=== PATIENT | female | born 1955 | race Caucasian/White ===

== ENCOUNTER 2024-05-08 09:23 | Day surgery (SDC) | payer MEDICARE, SELFPAY ==
[2024-05-08] VITALS (9 sets, daily range): BP systolic 123–137; BP diastolic 74–85; PULSE 75–95; RESP 16; TEMP 36.4–36.9; O2SAT 96–99; BMI 25.0
--- NOTE | 2024-05-08 10:09 | PCM.PRE.AN2 ---
ASA Classification* ASA Classification ASA Classification: 2 Assessment & Plan Anesthesia* Anesthesia Assessment Anesthesia Assessment: Discussed sedation and/or anesthesia options, risks, benefits, and alternatives with patient/parents/legal guardian/POA. Questions invited. The patient/parents/legal guardian/POA seems to understand and agrees to proceed with anesthesia plan. Reviewed the physical assessment, medical history, allergy history and patient home medications list prior to surgery/procedure/anesthetic and documented any changes. Performed airway and anesthesia risk assessments. Anesthesia Type Anesthesia Type: MAC History Source History Obtained from:: Patient and Chart Anesthesia Focused Assessment* Temperature: 98.3 F Pulse Rate: 95 Blood Pressure: 123/81 Respiratory Rate: 16 Pulse Ox: 99 Oxygen Delivery Method: Room Air Airway Assessment Mouth opens: >3 cm Mallampati Score: III Teeth Condition: Intact Neck Range of motion (ROM): Full ROM Focused Labs Anesthesia Preop lab: CBC CHEMISTRY COAG Pre-Assessment Diagnosis/Proposed Procedure Planned Operative Procedure(s): CSCOPE Anesthesia History Anesthesia History - finishing supervisor plastic sheets: Anesthesia History - finishing supervisor plastic sheets Hx Hospitalization No 05/06/24 12:03 Any Problems With Anesthesia No 05/06/24 12:03 Cholinesterase deficiency No 05/06/24 12:03 You/Your Family Experience No 05/06/24 12:03 fever (hyperthermia) with Relationship Recent Exposure to Contagious No 05/08/24 09:40 Disease Does patient have nerve No 05/06/24 12:03 stimulator Patient instructed to have device shut off --Does patient have Pacemaker No 05/08/24 09:44 or ICD? When Was Last Pacemaker Check QUESTION #4 FULL TEXT: You/Your Family Experience fever (hyperthermia) with Anesthesia Any additional information?: No Last Oral Intake Last Oral intake: Last Oral Intake NPO since 21:00 05/08/24 09:44 Meds taken in AM with sips of water? Meds patient instructed to take am of surgery Any additional information?: No PONV PONV - finishing supervisor plastic sheets: PONV - finishing supervisor plastic sheets Female Yes 05/06/24 12:03 HX of Motion Sickness No 05/06/24 12:03 HX of N/V After Surgery No 05/06/24 12:03 Non-Smoker Yes 05/06/24 12:03 Duration of Surgery greater No 05/06/24 12:03 than 60 minutes Number of Risk Factors 2 05/06/24 12:03 PONV Score Moderate Risk 05/06/24 12:03 Any additional information?: No Height & Weight Height & Weight: Anesthesia: Height & Weight Height 5 ft 3 in 05/08/24 09:44 Weight: 64 kg 05/08/24 09:44 Body Mass Index (BMI) 25.0 05/08/24 09:44 Respiratory Assessment Respiratory Assessment - finishing supervisor plastic sheets: Respiratory Tract Infection Hx - finishing supervisor plastic sheets Hx Respiratory Tract Infection No 05/06/24 12:03 Any additional information?: No STOP Sleep Apnea STOP Sleep Apnea - finishing supervisor plastic sheets: STOP Sleep Apnea - finishing supervisor plastic sheets Hx Hypertension No 05/06/24 12:03 Hx Sleep Apnea No 05/06/24 12:03 CPAP BIPAP Do you snore loudly (louder No 05/06/24 12:03 than talking or can be heard Do you often feel tired/ No 05/06/24 12:03 fatigued/ sleepy during daytime? Has anyone observed you stop No 05/06/24 12:03 breathing during sleep? STOP Results Negative 05/06/24 12:03 QUESTION #5 FULL TEXT : Do you snore loudly (louder than talking or can be heard through closed doors)? Any additional information?: No Tobacco Use History Tobacco Use History - finishing supervisor plastic sheets: Tobacco Use History - finishing supervisor plastic sheets Tobacco Use Smoking Status Never smoker 05/06/24 12:03 Hx Tobacco Use No 05/06/24 12:03 Years Smoking Packs Smoked per Day Smoking Cessation Date was within the last 15 years Hx Smoking Cessation Date Hx Smoking Cessation Counseling Any additional information?: No Hematologic Medial History Hematologic Hx - finishing supervisor plastic sheets: Hematologic Medical Hx - regulatory coordinator Hx of Blood Transfusion No 05/06/24 12:03 Hx of Transfusion in last 3 No 05/06/24 12:03 Months Date of Last Transfusion (if within last 3 months) Ever experience any problems No 05/06/24 12:03 with transfusion(s)? Specify any problems Hx of Preganancy in last 3 No 05/06/24 12:03 Months Nurse Filling Out Transfusion DSCHRIBER 05/06/24 12:03 & Questions: Date: 05/06/24 05/06/24 12:03 Time: 12:05 05/06/24 12:03 Patient unable to answer at this time (ie. confused, unrespo Any additional information?: No /Reproduction History /Reproductive History - finishing supervisor plastic sheets: /Reproductive Hx- finishing supervisor plastic sheets Hx Now No 05/06/24 12:03 Gestational Age (in weeks): EDC: Hx Hx Para Hx Section SAB No 05/06/24 12:03 Any additional information?: No PFSH Medical History (Updated 05/06/24 @ 12:09 by Noa Otoole) Wears glasses Post-menopausal Arthritis High cholesterol Back pain History of IBS Gastric reflux Non-smoker Acid reflux Positive colorectal cancer screening using Cologuard test Home Medications ?Medication ?Instructions ?Recorded ?Last Taken ?Type estradiol 1 mg tablet 0.5 mg PO QDAY 04/13/24 Unknown History fenofibrate 160 mg tablet 160 mg PO QDAY 04/13/24 Unknown History medroxyprogesterone 2.5 mg tablet 2.5 mg PO QDAY 04/13/24 Unknown History omeprazole 20 mg capsule,delayed 20 mg PO QDAY 04/13/24 05/08/24 06:00 History release Allergy/AdvReac Type Severity Reaction Status Date / Time No Known Allergies Allergy Verified 05/08/24 09:39 Surgical History History of hysteroscopy Social History Smoking Status: Never smoker alcohol intake: never substance use type: does not use Review of Systems (Anesthesia) ROS Narrative System reviewed and no additional complaints, except as documented. Review of Systems ROS Unobtainable: Denies due to encephalopathy, due to endotracheal tube, due to mental condition, due to mental status or other Constitutional Constitutional: Denies change in weight, fever(s), snoring or stops breathing during sleep Eyes Eyes: Denies irritation, itchy eyes or requires corrective lenses ENT HEENT: Denies loss taste/smell, otalgia or sore throat Cardiovascular Cardiovascular: Denies chest pain, dyspnea, hypertension or palpitations Respiratory/Chest Respiratory/Chest: Denies chest congestion, cough or wheezing Gastrointestinal Gastrointestinal: Denies heartburn, nausea or vomiting Musculoskeletal Musculoskeletal: Denies muscle weakness or neck pain Integumentary Integumentary: Denies rash, sores, unusual bruising or wounds Neurologic Neurologic: Denies abnormal movements, abnormal speech, behavior changes, confusion, restless legs or seizures Psychiatric Psychiatric: Denies abnormal sleep pattern, anxiety or confusion Hematologic/Lymphatic Hematologic/Lymphatic: Denies easy bleeding or easy bruising Allergic/Immunologic Allergic/Immunologic: Denies asthma Physical Exam Const alert, oriented x3 and average body habitus HEENT dentition normal Neck full ROM Resp normal respiratory effort, normal air movement and clear to auscultation bilaterally Cardio regular rate, regular rhythm, no murmurs and diaphoretic Back/Spine normal ROM and thoraco-lumbar ROM normal Extremity full ROM Neuro oriented x3 and moves all extremities
--- NOTE | 2024-05-08 10:30 | COLBX_PTH ---
PATIENT: JAGDEEP GONZALEZ [place] [facility] [id number] AGE/SX: 68/F ROOM: RE05/08/[address]: Dr. Herbie Delgado MD : 1955 BED: DIS: 05/08/2024 SPEC #: [id number] RECD: 05/08/24 13:51 STATUS: LASHAE REGuerita #: [id number] MEAGAN: 05/08/24 10:[address]: Herbie Delgado DEPT: SURGICAL PATHOLOGY RECD BY: Cricket Hernandez ENTERED: 05/08/24 13:51 SP TYPE: COLON BX OTHR DR: Dr. Neel Hogan MD Tissues: A - Cecum, NOS Procedures: Surgery Specimen Level IV HEADER OPERATION: Colonoscopy with biopsy, clip and tattoo PRE-OP DIAGNOSIS: Positive colorectal cancer screening using Cologuard test TISSUE SUBMITTED: A- Cecal mass MICROSCOPIC DIAGNOSIS A. Colon, cecum, mass, biopsy: * Fragments of tubulovillous adenoma - see note. Note: If this biopsy represents only a portion of a larger mass lesion, these findings may not be agricultural sales representative. Recommend correlation with endoscopic and imaging findings. MICROSCOPIC DESCRIPTION Slides are reviewed. GROSS DESCRIPTION A. Received in fixative is one container labeled with the patient's name and designated Cecal mass. The specimen consists of multiple irregular fragments of light garcia soft tissue that in aggregate measure 1.6 x 0.2 x 0.2 cm. The specimen is totally submitted in one cassette. 05/08/2024 CPT:44071
--- NOTE | 2024-05-08 10:34 | PCM.HP.BLA ---
History and Physical Date of Admission: 05/08/24 Intake Vital Signs 12/15/2214:34 04/13/2508:12 Height 5 ft 2 in 5 ft 2 in Weight: 146 lb 4 oz BMI 26.7 BP 139/81 H Blood Pressure Location Rt brachial Position Sitting Respiration 18 Pulse 80 Pulse Source Monitor Temp 97.6 F L Temp Source Temporal Pulse Oximetry (%) 99 Oxygen Delivery Method room air Intake Visit Reasons: POSITIVE COLOGUARD Chief Complaint: positive coloagurd Is patient in pain?: No Allergies No Known Allergies Allergy (Unverified 04/13/24 09:13) Medications ?Medication ?Instructions ?Recorded ?Confirmed ?Type estradiol 1 mg tablet 0.5 mg PO QDAY 04/13/24 04/13/24 History fenofibrate 160 mg tablet 160 mg PO QDAY 04/13/24 04/13/24 History medroxyprogesterone 2.5 mg tablet 2.5 mg PO QDAY 04/13/24 04/13/24 History omeprazole 20 mg capsule,delayed 20 mg PO QDAY 04/13/24 04/13/24 History release Have you fallen in the past year?: No PFSH Medical History (Updated 04/13/24 @ 09:12 by Gabriela Singh LPN) Acid reflux Positive colorectal cancer screening using Cologuard test Social History (Updated 04/13/24 @ 09:12 by Gabriela Singh LPN) Smoking Status: Never smoker alcohol intake: never substance use type: does not use HPI HPI HPI: Patient is a 68-year-old female here with positive Cologuard. She denies abdominal pain or blood in the stool. She has never had a colonoscopy. She has no family history of colon cancer. ROS General General: No weight change, appetite, fatigue, colon cancer, breast cancer or weakness HEENT HEENT: No difficulty swallowing, eye injury, eye surgery, swollen glands or hoarseness Endo Endocrine: No thyroid disease, diabetes mellitus, thyroid cancer, Hair loss, heat intolerance or cold intolerance Skin Skin: No rash or changing moles Musc Musculoskeletal: No back problems, arthritis, rheumatoid arthritis, gout or joint pain Cardio Cardiovascular: No murmur, pacemaker, heart disease, atrial fibrillation, high blood pressure, heart attack, heart stent, palpitations, shortness of breat with exertion or chest pain Psych Psychiatric: No depression, anxiety or hearing voices Resp Respiratory: No shortness of breath, No sleep apnea, No cough, No COPD, No asthma, No emphysema and No wheezing Gastro Gastrointestinal: No abdominal pain, No nausea or vomiting, No diarrhea, No constipation, No blood in stool, No acid reflux, No hemorrhoids, No ulcers, No gallbladder problem and No black,tarry stools Charles Hematologic: No blood thinners, No blood disorders, No bleeding, No anemia and No blood clots Neuro Neurologic: No numbness, No tingling and No weakness Exam Const General: cooperative Orientation: alert and oriented x3 HENMT Head: normal to inspection Neck Neck: normal visual inspection and full ROM Chest Chest palpation & inspection: normal inspection of the chest Resp Effort & Inspection: normal respiratory effort Auscultation: clear to auscultation bilaterally Cardio Rate: regular rate Rhythm: regular rhythm GI Inspection: non-distended Palpation: soft and nontender Skin General: no rashes or lesions noted Neuro General: patient alert and patient oriented x3 Extrem General: full ROM Psych Appearance: grossly normal Mental Status: mental status grossly normal Assessment and Plan Assessment and Plan (1) Positive colorectal cancer screening using Cologuard test: Status: Acute Plan: I explained endoscopy in detail to the patient. I explained the risks including but not limited to stroke or heart attack with anesthesia, perforation of the GI tract, bleeding, infection. I explained that any of these could necessitate further emergency surgery. The patient understands and all questions were answered sufficiently. The patient wishes to proceed with procedure. Herbie Delgado MD Pager: [facility] [address] [place] [address], [address] [place] [address] Office: I have examined the patient and the H&P has been reviewed. There are no clinical changes since date of exam.
--- NOTE | 2024-05-08 11:04 | PCM.POST.ANE ---
Anesthesia: Postop Eval I Current Vital Signs Temperature: 97.5 F Pulse Rate: 84 Blood Pressure: 135/82 Respiratory Rate: 16 Pulse Ox: 97 Oxygen Delivery Method: Room Air Assessment Airway patent: Yes Spontaneous unlabored respirations: Yes Mental status: Awake and Calm nausea: No Vomiting: No Anesthesia Complication: No Fluid Hydration Crystalloid volume administer (ml): 20 Total IV fluid infused: 20 Progress Note Anesthesia document: Postop Eval 1 completed: Yes
--- NOTE | 2024-05-08 11:09 | OP.CCLET_ITS ---
05/08/2024 Neel Hogan Re : Colonoscopy procedure for Marya Gallagher Dear [place] This procedure was performed on Wednesday, May 08, 2024. My impressions and recommendations are as follows: Impressions : - Likely malignant tumor in the ascending colon. Biopsied. Tattooed. Clip was placed. - The examination was otherwise normal on direct and retroflexion views. Recommendations : - Discharge patient to home. - Resume previous diet. - Continue present medications. - Await pathology results. - Repeat colonoscopy in 1 year for surveillance based on pathology results. - Return to my office in 1 week. - Perform CT scan (computed tomography) of the abdomen with contrast at appointment to be scheduled. My findings are described in the full procedure note, which is enclosed. If I can be of further assistance, please feel free to contact me at Doctor phone number(s): , Work: . Sincerely, Herbie Delgado MD 05/08/2024 11:09:14 AM This report has been signed electronically.
--- NOTE | 2024-05-08 11:09 | OP.COLON_ITS ---
Patient Name: Marya Gallagher Procedure Date: 05/08/2024 10:39 AM Date of : 1955 Age: 68 Procedure: Colonoscopy Indications: Positive Cologuard test Providers: Herbie Delgado MD Medicines: Propofol per Anesthesia Patient Profile: This is a 68 year old female. Refer to note in patient chart for documentation of history and physical. Last Colonoscopy: none. The patient's first colonoscopy is today. Complications: No immediate complications. Estimated blood loss: Minimal. Procedure: Pre-Anesthesia Assessment: - Prior to the procedure, a History and Physical was performed, and patient medications and allergies were reviewed. The patient's tolerance of previous anesthesia was also reviewed. The risks and benefits of the procedure and the sedation options and risks were discussed with the patient. All questions were answered, and informed consent was obtained. Prior Anticoagulants: The patient has taken no anticoagulant or antiplatelet agents. After reviewing the risks and benefits, the patient was deemed in satisfactory condition to undergo the procedure. After I obtained informed consent, the scope was passed under direct vision. Throughout the procedure, the patient's blood pressure, pulse, and oxygen saturations were monitored continuously. The colonoscope was introduced through the anus and advanced to the cecum, identified by appendiceal orifice and ileocecal valve. The colonoscopy was performed without difficulty. The patient tolerated the procedure well. The quality of the bowel preparation was good. The ileocecal valve, appendiceal orifice, and rectum were photographed. Scope In: 10:47:51 AM Scope Withdrawal Time 0 hours 7 minutes 32 seconds Scope Out: 11:02:03 AM Total Procedure Duration Time 0 hours 14 minutes 12 seconds Findings: A frond-like/villous non-obstructing large mass was found in the ascending colon. The mass was non-circumferential. No bleeding was present. This was biopsied with a cold forceps for histology. Area was tattooed with an injection of 2 mL of Mellissa ink. For location marking, one hemostatic clip was successfully placed. There was no bleeding at the end of the procedure. The exam was otherwise without abnormality on direct and retroflexion views. Impression: - Likely malignant tumor in the ascending colon. Biopsied. Tattooed. Clip was placed. - The examination was otherwise normal on direct and retroflexion views. Recommendation: - Discharge patient to home. - Resume previous diet. - Continue present medications. - Await pathology results. - Repeat colonoscopy in 1 year for surveillance based on pathology results. - Return to my office in 1 week. - Perform CT scan (computed tomography) of the abdomen with contrast at appointment to be scheduled. Procedure Code(s): --- Professional --- 40629, Colonoscopy, flexible; with biopsy, single or multiple 19119, Colonoscopy, flexible; with directed submucosal injection(s), any substance 04883, Unlisted procedure, colon Diagnosis Code(s): --- Professional --- D49.0, Neoplasm of unspecified behavior of digestive system R19.5, Other fecal abnormalities CPT copyright 2021 [employer]. All rights reserved. The codes documented in this report are preliminary and upon computer language coder review may be revised to meet current compliance requirements. Herbie Delgado MD 05/08/2024 11:09:14 AM This report has been signed electronically. Number of Addenda: 0 Note Initiated On: 05/08/2024 10:39 AM
--- NOTE | 2024-05-08 11:44 | POSTOPAN2_ITS ---
Anesthesia Postop Eval I Sum Postop Eval Completion status Anesthesia document: Postop Eval 1 completed: Yes Anesthesia Postop Eval I Summary Anesthesia Postop Eval I Summary: Anesthesia Postop Eval I: Assessment Summary Airway patent Yes 05/08/24 11:05 PRINCIPAL PLANNER.TROBDale Spontaneous unlabored Yes 05/08/24 11:05 PRINCIPAL PLANNER.KULDIP respirations Mental status Awake,Calm 05/08/24 11:05 PRINCIPAL PLANNER.TROBDale nausea No 05/08/24 11:05 PRINCIPAL PLANNER.TROBDale Vomiting No 05/08/24 11:05 PRINCIPAL PLANNER.TROBDale Anesthesia Postop Eval I: Fluid Summary Crystalloid volume administer 20 05/08/24 11:05 PRINCIPAL PLANNER.TROBY (ml) Colloids volume administered ( ml) Blood Product volume administered (ml) Total IV fluid infused 20 05/08/24 11:05 PRINCIPAL PLANNER.KULDIP Anesthesia Postop Eval I: Summary Notes Anesthesia Complication No 05/08/24 11:05 PRINCIPAL PLANNER.KULDIP Anesthesia Complication Comment: Post-operative progress note Anesthesia: Postop Eval II Evaluation Mental status: Awake Pain Level: 0 nausea: No Vomiting: No Complications Anesthesia Complication: No
--- NOTE | 2024-05-08 11:44 | PCM.POSTANE2 ---
Anesthesia Postop Eval I Sum Postop Eval Completion status Anesthesia document: Postop Eval 1 completed: Yes Anesthesia Postop Eval I Summary Anesthesia Postop Eval I Summary: Anesthesia Postop Eval I: Assessment Summary Airway patent Yes 05/08/24 11:05 DIRT BIKE RACER.[email or web address] Spontaneous unlabored Yes 05/08/24 11:05 DIRT BIKE RACER.KULDIP respirations Mental status Awake,Calm 05/08/24 11:05 DIRT BIKE RACER.TROBDale nausea No 05/08/24 11:05 DIRT BIKE RACER.TROBDale Vomiting No 05/08/24 11:05 DIRT BIKE RACER.TROBDale Anesthesia Postop Eval I: Fluid Summary Crystalloid volume administer 20 05/08/24 11:05 DIRT BIKE RACER.TROBY (ml) Colloids volume administered ( ml) Blood Product volume administered (ml) Total IV fluid infused 20 05/08/24 11:05 DIRT BIKE RACER.KULDIP Anesthesia Postop Eval I: Summary Notes Anesthesia Complication No 05/08/24 11:05 DIRT BIKE RACER.KULDIP Anesthesia Complication Comment: Post-operative progress note Anesthesia: Postop Eval II Evaluation Mental status: Awake Pain Level: 0 nausea: No Vomiting: No Complications Anesthesia Complication: No
== END 2024-05-08 12:14 | disposition home or self-care (01) ==
LOC: SDC 09:25 → AC 09:27
PROVIDERS: PCP Family Medicine; Referring Provider Surgery; Visit Provider Surgery
PROC: 0DJD8ZZ Inspection of Lower Intestinal Tract, Via Natural or Artificial Opening Endoscopic (ICD-10-PCS; CPT 45378; principal; 2024-05-08 10:25)
DX: R19.5 Other fecal abnormalities (principal); K21.9 Gastro-esophageal reflux disease without esophagitis; D49.0 Neoplasm of unspecified behavior of digestive system
CPT/HCPCS: 45381; 45380; 88305; A4216; A4648

== ENCOUNTER → 2024-05-12 | Outpatient (CLI) | payer MEDICARE, SELFPAY ==
--- NOTE | 2024-05-12 11:47 | CT_ITS ---
EXAM: CT Chest, Abdomen and Pelvis With Intravenous Contrast CLINICAL INDICATION: COLON CANCER/ PO AND IV CONTRAST TECHNIQUE: Axial computed tomography images of the chest, abdomen and pelvis with intravenous contrast. This CT exam was performed using one or more of the following dose reduction techniques: automated exposure control, adjustment of the mA and/or kV according to patient size, and/or use of iterative reconstruction technique. COMPARISON: No relevant prior studies available. FINDINGS: CHEST: LUNGS AND PLEURAL SPACES: Lung emphysema. No consolidation. No significant effusion. No pneumothorax. No suspicious pulmonary nodules or mediastinal lymphadenopathy. HEART: Unremarkable. No cardiomegaly. No significant pericardial effusion. No significant coronary artery calcifications. MEDIASTINUM: Large esophageal hiatal hernia. ABDOMEN: LIVER: Hepatomegaly with fatty infiltration. GALLBLADDER AND BILE DUCTS: Unremarkable. No calcified stones. No ductal dilation. PANCREAS: Unremarkable. No ductal dilation. No mass. SPLEEN: Unremarkable. No splenomegaly. ADRENALS: Unremarkable. No mass. KIDNEYS AND URETERS: Unremarkable. No hydronephrosis. No solid mass. STOMACH AND BOWEL: Apparent asymmetric wall thickening of the descending colon. Underlying mass can not be excluded. Colonic diverticulosis without acute diverticulitis. No obstruction. PELVIS: APPENDIX: No findings to suggest acute appendicitis. BLADDER: Unremarkable. No mass. REPRODUCTIVE: Unremarkable as visualized. CHEST, ABDOMEN and PELVIS: INTRAPERITONEAL SPACE: Unremarkable. No significant fluid collection. No free air. BONES/JOINTS: Multilevel endplate degenerative changes and disc disease of L4- S1 with grade 1 anterior spondylolisthesis of L4 over L5. No acute fracture. No dislocation. SOFT TISSUES: Unremarkable. VASCULATURE: Scattered calcified atherosclerotic disease of the aorta without dissection or aneurysm. Scattered calcified atherosclerotic disease of aorta. No pulmonary embolism. LYMPH NODES: See above. CT/CT Chest, Abd, Pel w/Contrast IMPRESSION: 1. No pulmonary embolism. 2. No suspicious pulmonary nodules or mediastinal lymphadenopathy. 3. Apparent asymmetric wall thickening of the descending colon. Underlying ma ss can not be excluded. 4. Scattered calcified atherosclerotic disease of the aorta without dissection or aneurysm. 5. Large esophageal hiatal hernia. 6. Hepatomegaly with fatty infiltration. 7. Colonic diverticulosis without acute diverticulitis. Reading Location: [facility]
== END | disposition home or self-care (01) ==
LOC: CT 11:44
PROVIDERS: PCP Family Medicine; Referring Provider Surgery; Visit Provider Surgery
DX: C18.9 Malignant neoplasm of colon, unspecified (principal)
CPT/HCPCS: 71260; 74177; Q9967

== ENCOUNTER 2024-05-28 14:34 | Inpatient (IN) | payer MEDICARE, SELFPAY ==
--- NOTE | 2024-05-19 08:41 | EKG12_ITS ---
Test Reason : PREOP Blood Pressure : */* mmHG Vent. Rate : 69 BPM Atrial Rate : 69 BPM P-R Int : 134 ms QRS Dur : 76 ms QT Int : 360 ms P-R-T Axes : 5 36 46 degrees QTcB Int : 385 ms Normal sinus rhythm Normal ECG Confirmed by RUTH HUBER, COREY ([id number]), editor publications LORENA RODGERS ([id number]) on 05/20/2024 6:36:35 AM Referred By: Herbie Delgado Confirmed By: COREY MIRANDA MD
[2024-05-19 10:14] LABS: Magnesium 2.2 mg/dL (1.5-2.2)
[2024-05-28] VITALS (14 sets, daily range): BP systolic 106–132; BP diastolic 57–77; PULSE 60–79; RESP 14–18; TEMP 36.1–37; O2SAT 95–100; BMI 25.9; BMI 25.6
[2024-05-28] MEDS: Gabapentin 600 MG Tablet PO (11:27)
[2024-05-28] MEDS: Magnesium 1 GM over 15 mins IV (11:27)
[2024-05-28] MEDS: Acetaminophen 500 MG Tablet 1000 MG PO ×2 (11:27→18:26)
[2024-05-28] MEDS: Lactated Ringers 1,000 ML 40 ML IV ×3 (11:27→17:00)
[2024-05-28 11:43] LABS: Bedside Glucose 88 mg/dL (74-106)
--- NOTE | 2024-05-28 12:17 | PRE.ANES_ITS ---
ASA Classification* ASA Classification ASA Classification: 2 Assessment & Plan Anesthesia* Anesthesia Assessment Anesthesia Assessment: Discussed sedation and/or anesthesia options, risks, benefits, and alternatives with patient/parents/legal guardian/POA. Questions invited. The patient/parents/legal guardian/POA seems to understand and agrees to proceed with anesthesia plan. Reviewed the physical assessment, medical history, allergy history and patient home medications list prior to surgery/procedure/anesthetic and documented any changes. Performed airway and anesthesia risk assessments. Anesthesia Type Anesthesia Type: General History Source History Obtained from:: Patient and Chart Anesthesia Focused Assessment* Temperature: 98.6 F Pulse Rate: 72 Blood Pressure: 111/74 Respiratory Rate: 16 Pulse Ox: 98 Oxygen Delivery Method: Room Air Airway Assessment Mouth opens: >3 cm Mallampati Score: IV Teeth Condition: Caps/Crowns (Patient has couple crowns. 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 When Was Last Pacemaker Check QUESTION #4 FULL TEXT: You/Your Family Experience fever (hyperthermia) with Anesthesia Last Oral Intake Last Oral intake: Last Oral Intake NPO since 07:00 05/28/24 11:21 Meds taken in AM with sips of Yes 05/28/24 11:21 water? Meds patient instructed to take am of surgery Any additional information?: Yes NPO since: 07:00 (Patient had preop Ensure at 7 AM.) Meds taken in AM with sips of water?: Yes PONV PONV - tensioning machine operator: PONV - tensioning machine operator Female Yes 05/18/24 10:16 HX of Motion Sickness No 05/18/24 10:16 HX of N/V After Surgery No 05/18/24 10:16 Non-Smoker Yes 05/18/24 10:16 Duration of Surgery greater Yes 05/18/24 10:16 than 60 minutes Number of Risk Factors 3 05/18/24 10:16 PONV Score Moderate Risk 05/18/24 10:16 Height & Weight Height & Weight: Anesthesia: Height & Weight Height 5 ft 2 in 05/28/24 11:21 Weight: 64.3 kg 05/28/24 11:21 Body Mass Index (BMI) 25.9 05/28/24 11:21 Respiratory Assessment Respiratory Assessment - tensioning machine operator: Respiratory Tract Infection Hx - tensioning machine operator Hx Respiratory Tract Infection No 05/18/24 10:16 STOP Sleep Apnea STOP Sleep Apnea - tensioning machine operator: STOP Sleep Apnea - tensioning machine operator Hx Hypertension No 05/18/24 10:16 Hx Sleep Apnea No 05/18/24 10:16 CPAP BIPAP Do you snore loudly (louder No 05/18/24 10:16 than talking or can be heard Do you often feel tired/ No 05/18/24 10:16 fatigued/ sleepy during daytime? Has anyone observed you stop No 05/18/24 10:16 breathing during sleep? STOP Results Negative 05/18/24 10:16 QUESTION #5 FULL TEXT : Do you snore loudly (louder than talking or can be heard through closed doors)? 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 Specify any problems Hx of Preganancy in last 3 No 05/18/24 10:16 Months Nurse Filling Out Transfusion MGRIFFITH 05/18/24 10:16 & Questions: Date: 05/18/24 05/18/24 10:16 Time: 10:18 05/18/24 10:16 Patient unable to answer at this time (ie. confused, unrespo /Reproduction History /Reproductive History - tensioning machine operator: /Reproductive Hx- tensioning machine operator Hx Now No 05/18/24 10:16 Gestational Age (in weeks): EDC: Hx Hx Para Hx Section SAB No 05/18/24 10:16 Active Medications Active Medications: Current Medications Generic Name Dose Route Start Last Admin Trade Name Freq PRN Reason Stop Dose Admin Acetaminophen 1,000 mg 05/28/24 12:30 05/28/24 11:27 Acetaminophen 500 Mg Tablet PO 05/28/24 12:31 1,000 mg PREOP ONE Administration Gabapentin 600 mg 05/28/24 12:30 05/28/24 11:27 Gabapentin 600 Mg Tablet PO 05/28/24 12:31 600 mg PREOP ONE Administration Cefotetan Disodium 2 gm/ 100 mls @ 200 mls/hr 05/28/24 12:30 Sodium Chloride IV 05/28/24 12:59 PREOP ONE Lactated Ringer's 1,000 mls @ 40 mls/hr 05/28/24 12:30 05/28/24 11:27 IV 40 mls/hr .Q25H RANDOLPH Administration Magnesium Sulfate 1 gm/ 102 mls @ 408 mls/hr 05/28/24 12:30 05/28/24 11:27 Dextrose IV 05/28/24 12:44 408 mls/hr X1 ONE Administration Insulin Human Lispro 0 unit 05/28/24 12:30 Insulin Lispro 100 Unit/Ml Insuln.Pen SC 05/28/24 18:30 Q4H PRN PRN BG >/= 180, SEE PROTOCOL Protocol PFSH Medical History Former smoker Wears glasses Post-menopausal Arthritis High cholesterol Back pain History of IBS Gastric reflux Acid reflux Positive colorectal cancer screening using Cologuard test Home Medications ?Medication ?Instructions ?Recorded ?Last Taken ?Type estradiol 1 mg tablet 0.5 mg PO QDAY SUPPLEMENT Unknown History fenofibrate 160 mg tablet 160 mg PO QDAY HLD 04/13/24 Unknown History medroxyprogesterone 2.5 mg tablet 2.5 mg PO QDAY UTERU S HEALTH 04/13/24 Unknown History omeprazole 20 mg capsule,delayed 20 mg PO QDAY GERD 05/28/24 08:00 History release metronidazole 500 mg tablet 500 mg PO TID PREOP ANTIBI OTIC #6 05/15/24 05/27/24 Rx tabs neomycin 500 mg tablet 500 mg PO TID PREOP ANTIBIOT IC #6 05/15/24 Unknown Rx tabs sodium sul 1.479 gram-potas ch See Rx Instructions PO PER PKG DIR 05/18/24 05/27/24 History 0.188 gram-magnes sul 0.225 gram COLON PREOP PREP tablet (Sutab) Allergy/AdvReac Type Severity Reaction Status Date / Time No Known Allergies Allergy Verified 05/28/24 11:13 Surgical History History of wisdom tooth extraction History of colonoscopy History of hysteroscopy Social History Smoking Status: Former smoker alcohol intake: never substance use type: does not use Review of Systems (Anesthesia) ROS Narrative System reviewed and no additional complaints, except as documented.
--- NOTE | 2024-05-28 12:17 | PCM.HP.BLA ---
History and Physical Date of Admission: 05/28/24 Intake Vital Signs 05/08/2508:44 05/15/2512:20 Height 5 ft 3 in 5 ft 3 in Weight: 142 lb BMI 25.1 BP 123/76 H Blood Pressure Location Rt brachial Position Sitting Respiration 17 Pulse 86 Pulse Source Monitor Pulse Oximetry (%) 96 Oxygen Delivery Method room air Intake Visit Reasons: REVIEW CT SCAN RESULTS Chief Complaint: review ct scan results Is patient in pain?: No Allergies No Known Allergies Allergy (Verified 05/15/24 13:15) Medications ?Medication ?Instructions ?Recorded ?Confirmed ?Type estradiol 1 mg tablet 0.5 mg PO QDAY 04/13/24 05/15/24 History fenofibrate 160 mg tablet 160 mg PO QDAY 04/13/24 05/15/24 History medroxyprogesterone 2.5 mg tablet 2.5 mg PO QDAY 04/13/24 05/15/24 History omeprazole 20 mg capsule,delayed 20 mg PO QDAY 04/13/24 05/15/24 History release metronidazole 500 mg tablet 500 mg PO TID #6 tabs 05/15/24 05/15/24 Rx neomycin 500 mg tablet 500 mg PO TID #6 tabs 05/15/24 05/15/24 Rx sodium sul 1.479 gram-potas ch See Rx Instructions PO PER PKG DIR 05/15/24 05/15/24 Rx 0.188 gram-magnes sul 0.225 gram #30 tabs tablet (Sutab) Have you fallen in the past year?: No PFSH Medical History (Updated 05/15/24 @ 13:14 by Sara Torres) Wears glasses Post-menopausal Arthritis High cholesterol Back pain History of IBS Gastric reflux Non-smoker Acid reflux Positive colorectal cancer screening using Cologuard test Surgical History History of hysteroscopy Social History Smoking Status: Never smoker alcohol intake: never substance use type: does not use HPI HPI HPI: Patient is a 68-year-old female here for follow-up of her CT scan and colonoscopy. She was found to have a mass in the ascending colon. She had a CT scan that did not show any signs of metastasis. ROS General General: No weight change, appetite, fatigue, colon cancer, breast cancer or weakness HEENT HEENT: No difficulty swallowing, eye injury, eye surgery, swollen glands or hoarseness Endo Endocrine: No thyroid disease, diabetes mellitus, thyroid cancer, Hair loss, heat intolerance or cold intolerance Skin Skin: No rash or changing moles Musc Musculoskeletal: No back problems, arthritis, rheumatoid arthritis, gout or joint pain Cardio Cardiovascular: No murmur, pacemaker, heart disease, atrial fibrillation, high blood pressure, heart attack, heart stent, palpitations, shortness of breath with exertion or chest pain Psych Psychiatric: No depression, anxiety or hearing voices Resp Respiratory: No shortness of breath, No sleep apnea, No cough, No COPD, No asthma, No emphysema and No wheezing Gastro Gastrointestinal: No abdominal pain, No nausea or vomiting, No diarrhea, No constipation, No blood in stool, No acid reflux, No hemorrhoids, No ulcers, No gallbladder problem and No black,tarry stools Charles Hematologic: No blood thinners, No blood disorders, No bleeding, No anemia and No blood clots Neuro Neurologic: No numbness, No tingling and No weakness Exam Const General: cooperative Orientation: alert and oriented x3 HENMT Head: normal to inspection Neck Neck: normal visual inspection and full ROM Chest Chest palpation & inspection: normal inspection of the chest Resp Effort & Inspection: normal respiratory effort Auscultation: clear to auscultation bilaterally Cardio Rate: regular rate Rhythm: regular rhythm GI Inspection: non-distended Palpation: soft and nontender Skin General: no rashes or lesions noted Neuro General: patient alert and patient oriented x3 Extrem General: full ROM Psych Appearance: grossly normal Mental Status: mental status grossly normal Assessment and Plan Assessment and Plan (1) Colonic mass: Status: Acute Plan: Patient had a positive Cologuard and then underwent colonoscopy and was found to have a mass in the ascending colon near the hepatic flexure. It was tattooed and a clip was placed. 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 I recommend right hemicolectomy to resect it. I discussed right hemicolectomy with the patient in detail. I discussed the risks and including but not limited to; bleeding, infection, injury to other organs such as the bowel, bladder, ureter. Patient understands the risks and is willing to proceed. CT scan was performed that did not show any signs of metastasis. Herbie Delgado MD Pager: [facility] [address] [place] [address], [address] [place] [address] Office: I have examined the patient and the H&P has been reviewed. There are no clinical changes since date of exam.
--- NOTE | 2024-05-28 12:30 | COL._PTH ---
PATIENT: JAGDEEP GONZALEZ LOC: MS3 U#:[id number] AGE/SX: 68/F ROOM: MA322 RE05/28/[address]: Dr. Herbie Delgado MD : 1955 BED: 1 DIS: 05/30/2024 SPEC #: [id number] RECD: 05/28/24 15:09 STATUS: LASHAE PARKINSON #: [id number] MEAGAN: 05/28/24 12:[address]: Herbie Delgado DEPT: SURGICAL PATHOLOGY RECD BY: Cricket Hernandez ENTERED: 05/28/24 15:09 SP TYPE: COLON OTHR DR: Dr. Neel Hogan MD Tissues: A - Colon, NOS Procedures: Surgery Specimen Level HEADER OPERATION: ERAS, laparoscopic, right nash colectomy PRE-OP DIAGNOSIS: Colonic mass TISSUE SUBMITTED: A- Ileocolic segment MICROSCOPIC DIAGNOSIS A. Terminal ileum, right colon and appendix, mass, right hemicolectomy: * Tubulovillous adenoma (3.1 cm) margins free. * Negative for high grade dysplasia. * Negative for invasion. * Resection end margins viable and negative for neoplasia. * Appendix with fibrous obliteration of the distal lumen. * Sixteen lymph nodes negative for metastatic tumor (0/16). MICROSCOPIC DESCRIPTION Slides are reviewed. GROSS DESCRIPTION A. Received in formalin in a container labeled with the patient's name, date of , and ileocolic segment is an ileocecectomy specimen received with 2 stapled margins. The specimen consists of terminal ileum (15 cm in length by 2 cm in diameter), large colon (17 cm in length by 4 cm in diameter), attached appendix (7.5 cm in length by 0.7 cm in diameter), and attached pericolonic fat (up to 9 cm in greatest thickness). The serosa of the ileum exhibits dense adhesions. The serosa of the large bowel is garcia-pink and smooth with creeping fat. There is a 5.5 x 3.0 cm area of black tattoo ink situated 5 cm from the distal margin and greater than 10 cm from the proximal margin. The specimen is opened to reveal a garcia-pink, friable, and lobulated mass at the area of tattoo ink with an embedded metal clip. Mass measurement: 3.1 x 1.9 x 1.2 cm. It is situated to the margins as follows:Proximal margin: 18 cmDistal margin: 6.5 submitted asPericolonic fat margin: 9.5 cm Serial sections of the mass reveal friable garcia-pink surfaces that grossly appear confined to the mucosa, though is ill-defined at the center. No other mass lesions are grossly recognized. There is submucosal garcia-yellow adipose tissue within the large bowel and ileocecal valve. The remaining mucosa is garcia-pink with few haustral folds, and an average wall thickness of 0.3 cm. The attached appendix is sectioned to reveal a pinpoint lumen with 0.2 cm crane. The pericolonic fat is searched for lymph node candidate; 14 garcia-pink possible nodes are identified ranging from 0.2 to 0.7 cm in greatest dimension. Acrobatic Dancer sections:A1. Proximal margin, en faceA2. Distal margin, en faceA3. Pericolonic fat margin, en faceA4-9. Mass, entirely submitted (A9 includes uninvolved, adjacent nuchal so with submucosal fat)A10. Ileocecal valve11. Adhesions of [id number]. AppendixA 13. 6 lymph node candidates, wholeA 14. 6 lymph node candidates, wholeA 15. 2 lymph node candidates, each bisected and 1 inked black B 06/08/2024 CPT:76029
--- NOTE | 2024-05-28 12:30 | COL._PTH ---
PATIENT: JAGDEEP GONZALEZ LOC: MS3 U#:[id number] AGE/SX: 68/F ROOM: OR322 RE05/28/[address]: Dr. Herbie Delgado MD : 1955 BED: 1 DIS: 05/30/2024 SPEC #: [id number] RECD: 05/28/24 15:09 STATUS: LASHAE PARKINSON #: [id number] MEAGAN: 05/28/24 12:[address]: Herbie Delgado DEPT: SURGICAL PATHOLOGY RECD BY: Cricket Hernandez ENTERED: 05/28/24 15:09 SP TYPE: COLON OTHR DR: Dr. Neel Hogan MD Tissues: A - Colon, NOS Procedures: Surgery Specimen Level HEADER OPERATION: ERAS, laparoscopic, right nash colectomy PRE-OP DIAGNOSIS: Colonic mass TISSUE SUBMITTED: A- Ileocolic segment MICROSCOPIC DIAGNOSIS A. Ileocecectomy, mass, right hemicolectomy: MICROSCOPIC DESCRIPTION Slides are reviewed. GROSS DESCRIPTION A. Received in formalin in a container labeled with the patient's name, date of , and ileocolic segment is an ileocecectomy specimen received with 2 stapled margins. The specimen consists of terminal ileum (15 cm in length by 2 cm in diameter), large colon (17 cm in length by 4 cm in diameter), attached appendix (7.5 cm in length by 0.7 cm in diameter), and attached pericolonic fat (up to 9 cm in greatest thickness). The serosa of the ileum exhibits dense adhesions. The serosa of the large bowel is garcia-pink and smooth with creeping fat. There is a 5.5 x 3.0 cm area of black tattoo ink situated 5 cm from the distal margin and greater than 10 cm from the proximal margin. The specimen is opened to reveal a garcia-pink, friable, and lobulated mass at the area of tattoo ink with an embedded metal clip. Mass measurement: 3.1 x 1.9 x 1.2 cm. It is situated to the margins as follows:Proximal margin: 18 cmDistal margin: 6.5 submitted asPericolonic fat margin: 9.5 cm Serial sections of the mass reveal friable garcia-pink surfaces that grossly appear confined to the mucosa, though is ill-defined at the center. No other mass lesions are grossly recognized. There is submucosal garcia-yellow adipose tissue within the large bowel and ileocecal valve. The remaining mucosa is garcia-pink with few haustral folds, and an average wall thickness of 0.3 cm. The attached appendix is sectioned to reveal a pinpoint lumen with 0.2 cm crane. The pericolonic fat is searched for lymph node candidate; 14 garcia-pink possible nodes are identified ranging from 0.2 to 0.7 cm in greatest dimension. Customer Development Manager sections:A1. Proximal margin, en faceA2. Distal margin, en faceA3. Pericolonic fat margin, en faceA4-9. Mass, entirely submitted (A9 includes uninvolved, adjacent nuchal so with submucosal fat)A10. Ileocecal valve11. Adhesions of [id number]. AppendixA 13. 6 lymph node candidates, wholeA 14. 6 lymph node candidates, wholeA 15. 2 lymph node candidates, each bisected and 1 inked black B 05/29/2024 CPT:60418
[2024-05-28] MEDS: Cefotetan 2 GM in 0.9% Normal Saline (100mL MB+) 100 ML IV (12:50)
[2024-05-28] MEDS: BUPIVACAINE LIPOSOME/PF 20 ML VIAL OPERA.SITE (14:24)
--- NOTE | 2024-05-28 14:24 | OP.PCM_ITS ---
Operative Report (Standard) Operative Information Date of Procedure: 05/28/24 Pre-Operative Diagnosis: Ascending colon mass Post-Operative Diagnosis: Ascending colon mass Surgery/Procedure Performed: Laparoscopic right hemicolectomy with tap block can maker: Yes Printed Circuit Board Panels Plater: Lula Martinez Tasks completed by recreational assistant: Opening, Closing and Retracting Type of Anesthesia: General/Regional RN Documented Start/Stop Times: Operation Date: 05/28/24 12:30 Case Time Into Pre-Op 05/28/24 10:50 Out of Pre-Op 05/28/24 12:39 Anesthesia Start 05/28/24 12:40 Into Room 05/28/24 12:40 Procedure Start 05/28/24 13:06 Procedure Start Time: 13:06 Procedure Stop Time: 14:35 Select all DRAINS/GRAFTS/IMPLANTS that apply: None Estimated Blood Loss: 20 Specimen collected: Yes Description of specimen(s) removed: Ileocolic segment Description of surgery: Patient was brought back the operating room and general anesthesia was induced. The abdomen was prepped and draped in usual sterile fashion. A midline incision was made superior to the umbilicus and deepened to the fascia which was elevated and incised. Finger sweep was performed and a port was placed into the abdomen. The abdomen was insufflated to 15 mmHg. Camera was inserted in the abdomen and a tap block was performed bilaterally under laparoscopic guidance. Next under direct visualization a suprapubic 5 mm port was placed in the left lower quadrant 5 mm port was placed. Patient was placed in Trendelenburg position and the tattoo was identified in the mid ascending colon. The colon was freed from its lateral attachments throughout the right side of the abdomen until the hepatic flexure was identified. The hepatic flexure was taken down laparoscopically as well. Once there was adequate mobilization the patient was placed flat again and the abdomen was allowed to desufflate. The larger midline incision was created superior to the umbilicus connecting to the first incision and this was deepened to the fascia and the fascia was incised. A wound protector was then placed. The right colon was delivered through the incision. The lesser sac was entered and the colon was freed up from the mid transverse colon to the hepatic flexure. Next a KEVIN stapler was used to divide the terminal ileum just proximal to some adhesions. A stapler was used to divide the mid transverse colon between the left and right middle colic vessels. The right colonic pedicle was identified and dissected. The pedicle was clamped and doubly suture-ligated using 0 silk suture and divided. Next the mesentery was taken down proximal and distal to the right colonic pedicle using Enseal. The colonic segment was removed. Next the anastomosis was performed. The corner of each staple line was removed and the terminal ileum was stapled to the transverse colon in a [id number] functional end and fashion. The staple line was inspected and was hemostatic. TX 60 was used to close the enterostomy. The staple line had a few bleeders and these were tied off with 3-0 silk suture and then the staple line was hemostatic. It was inspected. There appeared to be g ood staple line. A crotch suture was fashion with 3-0 silk suture. The abdomen was irrigated and suctioned dry and the bowel was returned to the abdomen and the omentum was draped over it. Next the wound protector was removed and all the staff changed gown and gloves. The fascia was reapproximated with a running #1 PDS suture starting from the top and bottom meeting in the middle. The subcutaneous tissue was irrigated and suctioned dry. Local anesthetic was administered. The incision was closed with interrupted 4-0 Monocryl sutures and Steri-Strips. The port sites were closed with interrupted 4-0 Monocryl sutures. Steri-Strips and bandages were applied. Patient was awoken and taken to PACU in stable condition and tolerated the procedure well. Surgical Findings: Right colon mass Complications Complications: No Admit VTE Documentation VTE Mechan Device Prophylaxis: SCD's
--- NOTE | 2024-05-28 14:50 | PCM.POST.ANE ---
Anesthesia: Postop Eval I Current Vital Signs Temperature: 97 F Pulse Rate: 72 Blood Pressure: 113/63 Respiratory Rate: 16 Pulse Ox: 100 Oxygen Delivery Method: Room Air Assessment Airway patent: Yes Spontaneous unlabored respirations: Yes Mental status: Awake and Calm nausea: No Vomiting: No Anesthesia Complication: No Fluid Hydration Crystalloid volume administer (ml): 1,000 Total IV fluid infused: 1,000 Progress Note Anesthesia document: Postop Eval 1 completed: Yes
[2024-05-28] MEDS: Ketorolac 15 MG/ML Vial IV ×2 (17:00→21:51)
--- NOTE | 2024-05-28 19:15 | POSTOPAN2_ITS ---
Anesthesia Postop Eval I Sum Postop Eval Completion status Anesthesia document: Postop Eval 1 completed: Yes Anesthesia Postop Eval I Summary Anesthesia Postop Eval I Summary: Anesthesia Postop Eval I: Assessment Summary Airway patent Yes 05/28/24 14:50 [email or web address] Spontaneous unlabored Yes 05/28/24 14:50 FLOOR [email or web address] respirations Mental status Awake,Calm 05/28/24 14:50 [email or web address] nausea No 05/28/24 14:50 [email or web address] Vomiting No 05/28/24 14:50 [email or web address] Anesthesia Postop Eval I: Fluid Summary Crystalloid volume administer 1,000 05/28/24 14:50 [email or web address] (ml) Colloids volume administered ( ml) Blood Product volume administered (ml) Total IV fluid infused 1,000 05/28/24 14:50 [email or web address] Anesthesia Postop Eval I: Summary Notes Anesthesia Complication No 05/28/24 14:50 [email or web address] Anesthesia Complication Comment: Post-operative progress note Anesthesia: Postop Eval II Evaluation Mental status: Awake and Calm Pain Level: 2 nausea: No Vomiting: No Complications Anesthesia Complication: No
--- NOTE | 2024-05-28 19:15 | PCM.POSTANE2 ---
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 Spontaneous unlabored Yes 05/28/24 14:50 PARK MAINTENANCE [email or web address] respirations Mental status Awake,Calm 05/28/24 14:50 PARK MAINTENANCE [email or web address] nausea No 05/28/24 14:50 PARK MAINTENANCE [email or web address] Vomiting No 05/28/24 14:50 PARK MAINTENANCE [email or web address] Anesthesia Postop Eval I: Fluid Summary Crystalloid volume administer 1,000 05/28/24 14:50 PARK MAINTENANCE [email or web address] (ml) Colloids volume administered ( ml) Blood Product volume administered (ml) Total IV fluid infused 1,000 05/28/24 14:50 PARK MAINTENANCE [email or web address] Anesthesia Postop Eval I: Summary Notes Anesthesia Complication No 05/28/24 14:50 PARK MAINTENANCE [email or web address] Anesthesia Complication Comment: Post-operative progress note Anesthesia: Postop Eval II Evaluation Mental status: Awake and Calm Pain Level: 2 nausea: No Vomiting: No Complications Anesthesia Complication: No
[2024-05-28] MEDS: Ondansetron ODT 4 MG Tablet PO (20:12)
[2024-05-28] MEDS: Docusate Sodium 100 MG Capsule PO (21:51)
[2024-05-28] MEDS: 0.9% Saline Lock 10 ML Syringe IV (21:51)
[2024-05-28] MEDS: BENZOCAINE/MENTHOL 1 LOZENGE MUCOUS MEM (21:55)
[2024-05-29] MEDS: Acetaminophen 500 MG Tablet 1000 MG PO ×4 (00:24→17:47)
[2024-05-29 00:54] VITALS: BP 121/71; PULSE 69; RESP 16; TEMP 36.4; O2SAT 94
[2024-05-29] MEDS: Ondansetron ODT 4 MG Tablet PO ×3 (01:59→19:55)
[2024-05-29] MEDS: Ketorolac 15 MG/ML Vial IV ×3 (03:51→14:36)
[2024-05-29] MEDS: 0.9% Saline Lock 10 ML Syringe IV ×3 (03:51→14:36)
[2024-05-29 03:56] VITALS: BP 133/75; PULSE 67; RESP 16; TEMP 36.7; O2SAT 96
[2024-05-29] MEDS: Calcium Carbonate 500 MG Tablet 1000 MG PO ×2 (07:22→16:11)
[2024-05-29 08:05] VITALS: BP 123/63; PULSE 58; RESP 18; TEMP 36.6; O2SAT 95
[2024-05-29 08:05] LABS: Absolute Neutrophil Count 12.4 X10^3/uL (2.0-7.7); Basophil# 0.05 X10^3/uL; Basophil% 0.3 % (0-1); Eosinophil# 0.02 X10^3/uL; Eosinophils% 0.1 % (0-5); Hematocrit 36.9 % (37-47); Lymphocyte % 13.1 % (19-41); Mean Corp Hgb Conc 32.5 g/dL (32-36); Mean Corpuscular Hgb 29.9 pg (27.0-32.0); Mean Platelet Vol. 9.2 fl (6.2-12.0); Monocyte# 1.38 X10^3/uL; Monocyte% 8.6 % (0-10); NRBC Flagged by Analyzer 0 % (0-5); Neutrophil # 12.38 X10^3/uL (2.7-7.7); Neutrophil % 77.3 % (47-70); Platelet Count 460 K/mm3 (150-450); RBC Distribution Width CV 13.2 % (11.6-14.6); RBC Distribution Width SD 44.4 fl (35.1-43.9); Red Blood Count 4.01 M/mm3 (4.2-5.4)
[2024-05-29 08:39] LABS: Anion Gap 13 (5-15); BUN 10 mg/dL (4-19); BUN/Creat Ratio 12.4 RATIO (10-20); Calcium,Total 8.8 mg/dL (7.6-11.0); Carbon Dioxide 20.7 mmol/L (21.0-32.0); Chloride 102 mmol/L (98-108); Creatinine, Serum 0.84 mg/dL (0.70-1.20); EST Glomerular Filtration Rate 76 (>60); Estimated Creatinine Clearance 57.68 ml/min (50-250); Glucose 109 mg/dL (70-99); Sodium Level 135 mmol/L (133-145)
[2024-05-29] MEDS: Docusate Sodium 100 MG Capsule PO (08:51)
--- NOTE | 2024-05-29 10:24 | CASEMGMT ---
ROSSANA DE Assessment: Face to Face with pt for initial transition planning/care coordination assessment. ROSSANA DE introduced self and role at [facility], pt voices understanding and consents to assessment. Pt is A&O x4 and answers all questions appropriately at this time. Pt lying in bed in no distress. Care providers, pharmacy, and demographics verified/updated. Admitting Dx: colonic mass Strata Score: 1 PCP:Donta Hogan Specialists:Ariel Gentile, [employer] Preferred Pharmacy: [facility] Retail Insurance: Incentient Prescription Benefit: yes LNOK: Vandana Chand dtr; Imelda Augustine, sister Living Arrangements: Pt lives alone in a two story home with 1 step to enter then a flight to get to the main level. Pt reports she is typically I in ADL/IADLs and denies concerns at home. Transportation: Pt drives self and denies concerns with transportation. DME:cane, grab bars in bathroom HHC/SNF: Denies hx of Pt states no concerns with going home at time of dc. Pt states her sister and dtr is able to help her post op. She does not anticipate any homegoing needs at this time. Pt states no further concerns/needs. CM to follow. Advised pt to ask CM if any further questions/concerns/needs arise, voices understanding. Pt Goal: Home Plan: Home Nidia TRACY CM Handoff given to ROSSANA DE MS3
[2024-05-29 14:10] VITALS: BP 123/66; PULSE 66; RESP 18; TEMP 36.7; O2SAT 96
[2024-05-29 20:00] VITALS: BP 148/77; PULSE 64; RESP 16; TEMP 36.6; O2SAT 99
[2024-05-30] MEDS: Calcium Carbonate 500 MG Tablet 1000 MG PO ×2 (00:25→08:35)
[2024-05-30] MEDS: Acetaminophen 500 MG Tablet 1000 MG PO ×3 (00:25→12:56)
[2024-05-30 00:30] VITALS: BP 150/79; PULSE 61; RESP 16; TEMP 36.6; O2SAT 97
[2024-05-30 07:28] LABS: Absolute Neutrophil Count 7.2 X10^3/uL (2.0-7.7); Basophil% 0.9 % (0-1); Eosinophil# 0.13 X10^3/uL; Eosinophils% 1.2 % (0-5); Hematocrit 36.5 % (37-47); Hemoglobin 12.3 g/dL (12.0-15.0); Lymphocyte % 22.2 % (19-41); Mean Corp Hgb Conc 33.7 g/dL (32-36); Mean Corpuscular Hgb 30.5 pg (27.0-32.0); Mean Corpuscular Volume 90.6 fL (81-99); Mean Platelet Vol. 9.1 fl (6.2-12.0); Monocyte# 0.93 X10^3/uL; Monocyte% 8.6 % (0-10); NRBC Flagged by Analyzer 0 % (0-5); Neutrophil # 7.17 X10^3/uL (2.7-7.7); Neutrophil % 66.4 % (47-70); Platelet Count 407 K/mm3 (150-450); RBC Distribution Width CV 13.2 % (11.6-14.6); RBC Distribution Width SD 43.8 fl (35.1-43.9); Red Blood Count 4.03 M/mm3 (4.2-5.4); White Blood Count 10.8 K/mm3 (4.4-11.0)
[2024-05-30 07:43] LABS: Anion Gap 11 (5-15); BUN 9 mg/dL (4-19); BUN/Creat Ratio 11.5 RATIO (10-20); Calcium,Total 9.6 mg/dL (7.6-11.0); Carbon Dioxide 23.1 mmol/L (21.0-32.0); Chloride 104 mmol/L (98-108); Creatinine, Serum 0.79 mg/dL (0.70-1.20); EST Glomerular Filtration Rate 82 (>60); Estimated Creatinine Clearance 60.56 ml/min (50-250); Glucose 105 mg/dL (70-99); Potassium 4.1 mmol/L (3.3-5.1); Sodium Level 137 mmol/L (133-145)
--- NOTE | 2024-05-30 10:23 | DCINST_ITS ---
Discharge Instructions Diet Discharge Diet: Soft diet (Transitional diet x 1 week) DC O2, CPAP, BIPAP needs Home O2 Discharge instructions: No Dressing / Incision Discharge Activity: May Not Drive (No driving while using narcotic pain medication) and May Shower May resume sexual activity in: 2 weeks Ice area for (Minutes): 20 Lifting Restrictions: No lifting greater than 10 pounds for 4 weeks after surgery Dressing / Incision Call your doctor if your incision/area has: Continuous Slow Oozing, Increased Pain/ Swelling and Foul Smelling Discharge Call your doctor if you observe: Fever of 101 or Higher, Inability to urinate, Inability to have a bowel movement and Uncontrolled pain Suture Line Care: Avoid Pulling/Pushing Cleanse incision/area with: Keep Dressing Clean & Dry Additional Dressing/Incision Instructions:: Please leave Steri-Strips intact until they fall off spontaneously or are taken off at your follow-up visit Follow Up Care Please Follow Up With: Herbie Delgado MD When: 2 weeks postop Test Results: Test results from this visit will be discussed in further detail at your follow- up appointment, if applicable. Discharge Plan Admission Admit Date/Time: 05/28/24 14:34 Primary Reason for Your Visit: Colon surgery Attending Provider: Herbie Delgado Primary Care Provider: Neel Hogan Discharge Orders/Prescriptions Prescriptions: New ondansetron 4 mg Tablet,Disintegrating 4 mg PO Q6H PRN PRN (Reason: Nausea/Vomiting) Qty: 10 0RF oxycodone 5 mg Tablet 5 mg PO Q6H PRN PRN (Reason: Pain Score 6-10) 3 Days Qty: 10 0RF Continued estradiol 1 mg tablet 0.5 mg PO QDAY fenofibrate 160 mg tablet 160 mg PO QDAY omeprazole 20 mg capsule,delayed release(DR/EC) 20 mg PO QDAY medroxyprogesterone 2.5 mg tablet 2.5 mg PO QDAY Sutab 1.479-0.188- 0.225 gram tablet See Rx Instructions PO PER PKG DIR Rx Instructions: PER PKG DIRECTION orally per package directions; PO PER PKG DIR Discontinued neomycin 500 mg tablet 500 mg PO TID Qty: 6 0RF Rx Instructions: Take 2 neomycin tablets @ 1:00pm, Take 2 neomycin tablets @ 3:00pm, take 2 neomycin tablets @ 11:00pm metronidazole 500 mg tablet 500 mg PO TID Qty: 6 0RF Rx Instructions: Take 2 metronidazole tablets @ 1:00pm, Take 2 metronidazole tablets @ 3:00pm, take 2 metronidazole tablets @ 11:00pm Other Ambulatory Orders: 12 Lead EKG (Routine) Timeframe: 20240519 Location: None Selected Ordered By: Dr. Omega Gomez Referrals / Follow Up: Neel Hogan MD [Primary Care Provider] - Disposition Disposition (needs filled in before D/C Order can be placed): Home, Self Care
--- NOTE | 2024-05-30 10:25 | DS.PCM_ITS ---
Providers Date of Admission: 05/28/24 Primary Care Physician: Dr. Neel Hogan MD Reason For Visit: COLONIC MASS Medications at Discharge Home Medications estradiol 1 mg tablet 0.5 mg PO QDAY SUPPLEMENT 04/13/24 fenofibrate 160 mg tablet 160 mg PO QDAY HLD 04/13/24 medroxyprogesterone 2.5 mg tablet 2.5 mg PO QDAY UTERUS HEALTH 04/13/24 omeprazole 20 mg capsule,delayed release 20 mg PO QDAY GERD 04/13/24 sodium sul 1.479 gram-potas ch 0.188 gram-magnes sul 0.225 gram tablet (Sutab) See Rx Instructions PO PER PKG DIR COLON PREOP PREP 05/18/24 ondansetron 4 mg disintegrating tablet 4 mg PO Q6H PRN PRN Nausea/Vomiting #10 tabs 05/30/24 oxycodone 5 mg tablet 5 mg PO Q6H PRN PRN Pain Score 6-10 3 days #10 tabs 05/30/24 Hospital Course Operations - (Laparoscopic assisted right hemicolectomy) Summary of Care Provided Hospital Course: Patient is 68-year-old female that underwent laparoscopic assisted right hemicolectomy with Dr. Delgado on 05/28/2024. Procedure was completed uncomplicated fashion the patient was returned in the hospital calixto for ongoing management. Postoperatively 1 patient exhibited return of bowel function and was advanced on her diet. She tolerated advancement without difficulty and continue to have bowel function. By the morning of postoperative day 2 patient declared that she had minimal pain complaints and was experiencing ongoing bowel function. She also declared that she was hopeful for discharge to home. A final advancement was made on her diet to a transitional level and she demonstrated tolerance of this further advancement without difficulty. At her request antiemetics and a small prescription of narcotic pain medication was sent to the pharmacy for discharge but at the time of her evaluation she was requiring neither of these. With these medications then in hand and her demonstration of tolerance over advancement of her diet she was granted discharge to home with instructions to follow-up with Dr. Delgado in 2 weeks posthospital discharge. Physical Exam Const alert, oriented x3 and no apparent distress Resp normal respiratory effort GI GI Narrative: Incisions appear appropriate beneath Steri-Strips, nondistended, soft, appropriately tender to palpation Weight / BMI Weight Weight: 140 lb Body Mass Index (BMI) 25.6 ABG / Lab / Microbiology Data 05/30/24 06:17 05/30/24 06:17 Laboratory: Laboratory Results - last 24 hr 05/30/24 06:17: WBC 10.8, RBC 4.03 L, Hgb 12.3, Hct 36.5 L, MCV 90.6, MCH 30.5, MCHC 33.7, RDW Std Deviation 43.8, RDW Coeff of Latoya 13.2, Plt Count 407, MPV 9.1, Immature Gran % (Auto) 0.700, Neut % (Auto) 66.4, Lymph % (Auto) 22.2, Jackson % (Auto) 8.6, Eos % (Auto) 1.2, Baso % (Auto) 0.9, Absolute Neuts (auto) 7.2, Absolute Lymphs (auto) 2.40, Nucleated RBC % 0, Sodium 137, Potassium 4.1, Chloride 104, Carbon Dioxide 23.1, Anion Gap 11, BUN 9, Creatinine 0.79, Estim Creat Clear Calc 60.56, Est GFR (MDRD) Non-Af 82, BUN/Creatinine Ratio 11.5, G lucose 105 H, Calcium 9.6 D/C Instructions Discharge Diet: Soft diet (Transitional diet x 1 week) May resume sexual activity in: 2 weeks Ice area for (Minutes): 20 Call your doctor if your incision/area has: Continuous Slow Oozing, Increased Pain/ Swelling and Foul Smelling Discharge Call your doctor if you observe: Fever of 101 or Higher, Inability to urinate, Inability to have a bowel movement and Uncontrolled pain Suture Line Care: Avoid Pulling/Pushing Cleanse incision/area with: Keep Dressing Clean & Dry Additional Dressing/Incision Instructions: Please leave Steri-Strips intact until they fall off spontaneously or are taken off at your follow-up visit DC O2, CPAP, BIPAP Needs Home O2 Discharge instructions: No Please Follow Up With: Herbie Delgado MD When: 2 weeks postop Meaningful Use Info Meaningful Use Meaningful Use Diagnoses (Choose all that apply): None applicable Ischemic Stroke Statin Dosing Therapy Reference: STATIN DOSE THERAPY REFERENCE: * Patients > 75 years receive moderate or high dose statin therapy. * Patients 75 years or YOUNGER should receive HIGH intensity statin dose unless contraindicated. You will be required to document reason for non-treatment if statin daily dose does not meet guidelines. HIGH DOSE STATIN THERAPY DAILY Atorvastatin > than or = to 40 mg Rosuvastatin > than or = to 20 mg Amlodipine + Atorvastatin > than or = to 2.5/40 mg Ezetimibe + Simvastatin 10/80 mg Simvastatin 80mg Discharge Plan Admission Admit Date/Time: 05/28/24 14:34 Primary Reason for Your Visit: Colon surgery Attending Provider: Herbie Delgado Primary Care Provider: Neel Hogan Discharge Orders/Prescriptions Prescriptions: New ondansetron 4 mg Tablet,Disintegrating 4 mg PO Q6H PRN PRN (Reason: Nausea/Vomiting) Qty: 10 0RF oxycodone 5 mg Tablet 5 mg PO Q6H PRN PRN (Reason: Pain Score 6-10) 3 Days Qty: 10 0RF Continued estradiol 1 mg tablet 0.5 mg PO QDAY fenofibrate 160 mg tablet 160 mg PO QDAY omeprazole 20 mg capsule,delayed release(DR/EC) 20 mg PO QDAY medroxyprogesterone 2.5 mg tablet 2.5 mg PO QDAY Sutab 1.479-0.188- 0.225 gram tablet See Rx Instructions PO PER PKG DIR Rx Instructions: PER PKG DIRECTION orally per package directions; PO PER PKG DIR Discontinued neomycin 500 mg tablet 500 mg PO TID Qty: 6 0RF Rx Instructions: Take 2 neomycin tablets @ 1:00pm, Take 2 neomycin tablets @ 3:00pm, take 2 neomycin tablets @ 11:00pm metronidazole 500 mg tablet 500 mg PO TID Qty: 6 0RF Rx Instructions: Take 2 metronidazole tablets @ 1:00pm, Take 2 metronidazole tablets @ 3:00pm, take 2 metronidazole tablets @ 11:00pm Other Ambulatory Orders: 12 Lead EKG (Routine) Timeframe: 20240519 Location: None Selected Ordered By: Dr. Omega Gomez Referrals / Follow Up: Neel Hogan MD [Primary Care Provider] - Disposition Disposition (needs filled in before D/C Order can be placed): Home, Self Care Charges/Coding Visit Charges Inpatient E&M: 51623 Disch Hosp
--- NOTE | 2024-05-30 10:51 | PN.SURG_ITS ---
Subjective Subjective Patient seen and examined during AM rounds. She is found resting in bed. She is just completing her breakfast. She denies any nausea or vomiting. She confirms that she is still having bowel movements that are slightly dark but otherwise nonconcerning. She reports that her pain is minimal except with movement and even then it is tolerable. Objective Data Objective Data Vital Signs: Vital Signs Temp Pulse Resp BP Pulse Ox O2 Del Method O2 Flow Rate 97.8 F 61 16 150/79 H 97 Room Air 4 05/30/24 00:30 05/30/24 00:30 05/30/24 00:30 05/30/24 00:30 05/30/24 00:30 05/30/24 00:30 05/28/24 17:26 Oxygen Flow Rate (L/min) 4 Oxygen Delivery Method Room Air Weight: 140 lb Body Mass Index (BMI) 25.6 Intake & Output: Intake and Output for Last 24 Hours 05/28/24 05/29/24 05/30/24 23:59 23:59 23:59 Intake Total 695.00 / 695.00 967.33 / 967.33 Balance 695.00 / 695.00 967.33 / 967.33 Lab / Micro Data 05/30/24 06:17 05/30/24 06:17 Labs: Laboratory Results - last 24 hr 05/30/24 06:17: WBC 10.8, RBC 4.03 L, Hgb 12.3, Hct 36.5 L, MCV 90.6, MCH 30.5, MCHC 33.7, RDW Std Deviation 43.8, RDW Coeff of Latoya 13.2, Plt Count 407, MPV 9.1, Immature Gran % (Auto) 0.700, Neut % (Auto) 66.4, Lymph % (Auto) 22.2, Evangeline % (Auto) 8.6, Eos % (Auto) 1.2, Baso % (Auto) 0.9, Absolute Neuts (auto) 7.2, Absolute Lymphs (auto) 2.40, Nucleated RBC % 0, Sodium 137, Potassium 4.1, Chloride 104, Carbon Dioxide 23.1, Anion Gap 11, BUN 9, Creatinine 0.79, Estim Creat Clear Calc 60.56, Est GFR (MDRD) Non-Af 82, BUN/Creatinine Ratio 11.5, G lucose 105 H, Calcium 9.6 Physical Exam Const oriented x3 and no apparent distress Resp normal respiratory effort GI GI Narrative: Slightly distended, operative dressings were initially intact but are taken down to reveal port site wounds of the left lower abdominal quadrant as well as laparotomy wound medially that remain well apposed and without erythema or other concerning features. Patient is soft and has minimal tenderness with palpation Assessment & Plan Assessment/Plan (1) S/P right colectomy: PLAN: Patient is postoperative day 2 from laparoscopic assisted right hemicolectomy for colonic mass. She is doing well in her recovery and has minimal pain complaints. She has experienced return of bowel function and is tolerating a diet. Informed her that we will plan to advance her to a transitional diet monitor for tolerance. If she tolerates this advancement will plan for discharge home. She has requested some antinausea and pain medication for home upon discharge just in case but is not presently requiring either. Wound care instructions were reviewed alongside activity restrictions. Patient confirms understanding. Will follow-up as above but anticipate discharge to home today. Reese Garcia MD General Surgery Endocrine Surgery Pager: [facility] [address] [place] [address], [address] [place] [address] Office: [phone] Charges/Coding Visit Charges Inpatient E&M: 25584 Subs Hosp L2
[2024-05-30] MEDS: Pantoprazole Sodium 20 MG Tablet PO (11:02)
== END 2024-05-30 15:33 | disposition home or self-care (01) | DRG 331 ==
LOC: MS3 14:42
PROVIDERS: Admitting Provider Surgery; PCP Family Medicine; Referring Provider Surgery; Visit Provider Surgery
PROC: 0DTF4ZZ Resection of Right Large Intestine, Percutaneous Endoscopic Approach (ICD-10-PCS; CPT 44205; principal; 2024-05-28 12:10)
DX: D12.2 Benign neoplasm of ascending colon (principal); E78.00 Pure hypercholesterolemia, unspecified; K21.9 Gastro-esophageal reflux disease without esophagitis
CPT/HCPCS: 36415; 80048; 82962; 83735; 85025; 88309; 93005; 94668; A4216; J0666; J2405; J3475